=== PATIENT | male | born 1980 | race Caucasian/White ===

== ENCOUNTER 2016-09-19 16:15 | Emergency (ER) | payer MEDICAID ==
[~2016-09-19] VITALS: Wt 74.1 kg
[~2016-09-19 16:15] MED LIST: CYCL-319 PO; NAPR-260 PO; tylenol 3
[2016-09-19] MEDS ORDERED: COLCHICINE 0.6 MG TAB PO ONE (19:00)
[2016-09-19] MEDS ORDERED: HYDROCODONE/APAP (5/325) TAB PO ONE (19:00)
[2016-09-19] MEDS ORDERED: IBUP800T25 PO (19:01)
[2016-09-19] MEDS ORDERED: COLC0.6T6 PO (19:01)
[2016-09-19 19:50] VITALS: BP 120/77; PULSE 76; RESP 20; TEMP 98.9
--- NOTE | 2016-09-19 23:55 | ERD ---
ER Documentation Chief Complaint Date/Time DATE: 09/19/16 TIME: 23:49 Chief Complaint RIGHT ELBOW SWELLING WITH NO TRAUMA. ATE FISH LAST NIGHT. HX OF GOUT HPI Patient is a 36-year-old male complaining of left elbow swelling and pain for 4 days. Patient has a history of gout and last gout attack was May last year. Denies any trauma. Patient also states that he ran out of ibuprofen medication. Denies paresis or paresthesia ROS All systems reviewed and are negative except as per history of present illness. Medications Home Meds Active Scripts Ibuprofen* (Motrin*) 800 Mg Tab, 800 MG PO Q6H Y for PAIN AND OR ELEVATED TEMP, #30 TAB Prov:DARWIN NELSON 09/19/16 Colchicine* (Colcrys*) 0.6 Mg Tablet, 0.6 MG PO DAILY for 30 Days, TAB Prov:DARWIN NELSON 09/19/16 Cyclobenzaprine Hcl* (Cyclobenzaprine Hcl*) 10 Mg Tablet, 10 MG PO TID, #20 TAB Prov:ALEN LOPEZ PA-C 02/04/15 Naproxen* (Naprosyn*) 500 Mg Tablet, 500 MG PO BID Y for PAIN AND/OR INFLAMMATION, #30 TAB Prov:ALEN LOPEZ PA-C 02/04/15 Reported Medications [tylenol 3] No Conflict Check 04/15/13 Allergies Allergies: Coded Allergies: No Known Drug Allergies (Verified Allergy, 04/15/13) PMhx/Soc Medical and Surgical Hx: pt denies Medical Hx, pt denies Surgical Hx History of Surgery: No Anesthesia Reaction: No Hx Neurological Disorder: No Hx Respiratory Disorders: No Hx Cardiac Disorders: No Hx Psychiatric Problems: No Hx Miscellaneous Medical Probl: No Hx Alcohol Use: No Hx Substance Use: No Hx Tobacco Use: No Smoking Status: Never smoker Physical Exam Vitals Vital Signs Date Time Temp Pulse Resp B/P Pulse Ox O2 Delivery O2 Flow Rate FiO2 09/19/16 19:50 98.9 76 20 120/77 98 Room Air 09/19/16 16:24 98.9 98 20 127/77 98 Physical Exam Physical Exam CONST: Well-developed, well-nourished, in no acute distress. Nontoxic in appearance. HEENT: Atraumatic. Normal Conjunctiva. EOM intact. TM intact. External ear is normal. Clear oropharnyx without erythema. No Uvular deviation. Moist mucous membranes. Supple neck. No meningismus. No submandibular induration. RESP: Clear to auscultation bilaterally. No wheezing. CARDIO: Regular rate and rhythm, no murmurs. ABD: Soft, non tender, non distended. Normal bowel sounds. No McBurney's point tenderness. No guarding or rigidity. No peritoneal signs. SKIN: No petechiae or rashes. BACK: No midline or flank tenderness. EXT: Left elbow swelling, erythema and pain. Decreased range of motion on the elbow joint. no cyanosis or edema. Distal pulses equal and bilateral. NEURO: Awake and alert, appropriate for age Results 24 hrs Current Medications Medications (Trade) Dose Ordered Sig/Pete Route PRN Reason Start Time Stop Time Status Last Admin Dose Admin Acetaminophen/ Hydrocodone Bitart ([place] (5/325)) 1 tab ONCE ONCE PO 09/19/16 19:00 09/19/16 19:01 DC 09/19/16 19:24 Colchicine (Colchicine) 1.2 mg ONCE ONCE PO 09/19/16 19:00 09/19/16 19:01 DC 09/19/16 19:25 Procedures/MDM EMERGENCY DEPARTMENT COURSE/MEDICAL DECISION MAKING This is a 28-year-old male who comes to the ED for a left elbow gout attack. Patient is afebrile, denies paresthesia or paresis. The patient was given [place] and colchicine in the department. On re-evaluation, the patient's symptoms improved. My primary diagnosis is gout. Differential diagnoses considered, included but not limited to rheumatoid arthritis, septic arthritis, cellulitis osteoarthritis,. Pt is hemodynamically stable upon reassessment. The patient was discharged for outpatient management with a prescription for colchicine and ibuprofen. The patient was advised to followup with their PMD in 1-2 days and to return to the Emergency Department if there are any new or worsening symptoms. The patient understood and agreed with the diagnosis, treatment and plan. Patient is stable for discharge at this time. Departure Diagnosis: Primary Impression: Gout attack Gout site: elbow Gout etiology: unspecified cause Laterality: left Qualified Code: M10.9 - Acute gout of left elbow, unspecified cause Additional Impression: Elbow pain, left Condition: Stable Patient Instructions: Treating Gout Attacks Ref[facility] Usted se viera hecho un examen mdico de control que le indica que no est en omer condicin que requiera tratamiento urgente en el Departamento de Emergencia. Un estudio ms profundo y el tratamiento de marmolejo condicin pueden esperar sin ningn riesgo hasta que usted sea atendida/o en el consultorio de marmolejo mdico o omer cl victorino. Es responsabilidad suya arreglar omer qian para el seguimiento del jeffrey. MANEJO DE CONDICIONES NO URGENTES EN EL FUTURO 1) Si usted tiene un mdico de atencin primaria: Usted debera llamar a marmolejo mdico de atencin primaria antes de venir al departamento de emergencia. Despus de las horas de consultorio, marmolejo doctor o marmolejo asociado/a est disponible por telfono. El mdico o enfermero de marguerite en el servicio telefnico puede asesorarle por mary medio para atender el problema, o jeffrey contrario se puede programar omer qian. 2) Si usted no tiene un mdico de atencin primaria: Llame al mdico o clnica de referencia que aparece abajo rita las horas de consultorio para hacer omer qian para que le vean. CLINICAS: [facility] [phone] [facility] [phone] [facility] [phone] [address] [facility]. [facility] [phone] [facility]. [place] [phone] [facility]. [phone] [address] [facility]. [facility] () Usted se viera hecho un examen mdico de control que le indica que no est en omer condicin que requiera tratamiento urgente en el Departamento de Emergencia. Un estudio ms profundo y el tratamiento de marmolejo condicin pueden esperar sin ningn riesgo hasta que usted sea atendida/o en el consultorio de marmolejo mdico o omer cl victorino. Es responsabilidad suya arreglar omer qian para el seguimiento del jeffrey. MANEJO DE CONDICIONES NO URGENTES EN EL FUTURO 1) Si usted tiene un mdico de atencin primaria: Usted debera llamar a marmolejo mdico de atencin primaria antes de venir al departamento de emergencia. Despus de las horas de consultorio, marmolejo doctor o marmolejo asociado/a est disponible por telfono. El mdico o enfermero de marguerite en el servicio telefnico puede asesorarle por mary medio para atender el problema, o jeffrey contrario se puede programar omer qian. 2) Si usted no tiene un mdico de atencin primaria: Llame al mdico o condado institucions de referencia que aparece abajo rita las horas de consultorio para hacer omer qian para que le vean. SI USTED NO PUEDE PAGAR PARA SHELDON UN MEDICO puede ir a: [facility] [address] [place] [address] [facility] [address] [place] [address] [facility] [address] [place] [address] PARA RHYS [facility] [address] [place], [place] [id number] Additional Instructions: Cheque otro vez con marmolejo doctor primario en el proximo santamaria or regresa para mas o nueva simptomas DARWIN NELSON Sep 19, 2016 23:55
== END 2016-09-19 19:50 | disposition home or self-care (01) ==
LOC: FTE 16:15
DX: M10.9 Gout, unspecified (principal); M25.522 Pain in left elbow
CPT/HCPCS: Z7502; Z7610; 99283